=== PATIENT | male | born 1980 | race Caucasian/White ===

== ENCOUNTER 2023-08-14 01:22 | Day surgery (SDC) | payer BC, SELFPAY ==
[2023-08-01 10:08] VITALS: BMI 23.7
--- NOTE | 2023-08-10 14:30 | SUR.PREOP ---
Patient called regarding upcoming procedure. Message left on patient's voicemail regarding preop instructions, appointment times, and procedure prep.
[2023-08-14 11:34] VITALS: BP 124/84; PULSE 89; RESP 18; TEMP 36.4; O2SAT 100
[2023-08-14] MEDS: LACTATED RINGERS 1,000 ML 150 ML IV CONT (11:37)
--- NOTE | 2023-08-14 12:41 | WPDANESEPPF ---
Anes - Initial Pre Proc Eval Procedure: Operation Date: 08/14/23 13:00 Proposed Procedures p Colonoscopy - Rex Rodriguez MD Date/Time: 08/14/23 12:41 Surgeon: Rex Rodriguez MD Pre Op Diagnosis: FA HX colon polyps Patient Data Age: 42 Gender: M Height: 1.78 m Weight: 73.9 kg Last Vital Signs Temp 97.6 F 08/14/23 11:34 Pulse 89 08/14/23 11:34 Resp 18 08/14/23 11:34 BP 124/84 08/14/23 11:34 Pulse Ox 100 08/14/23 11:34 O2 Del Method Room Air 08/14/23 11:34 Allergies Allergy/AdvReac Type Severity Reaction Status Date / Time No Known Drug Allergies Allergy Unknown Unknown Verified 08/14/23 11:32 Home Medications Medication Instructions Recorded Confirmed Type emtricitabine 200 mg-tenofovir 1 tablet PO DAILY #30 tabs 11/17/22 08/01/23 Rx alafenamide fumarate 25 mg tablet (Descovy) alprazolam 0.5 mg tablet 0.5 mg PO BID PRN anxiety #30 tabs 07/03/23 08/01/23 Rx Patient hx anesthesia problems: none Family hx anesthesia problems: none Results Review: All pre-operative results and documents have been reviewed as part of the pre-operative evaluation. [facility] Family History Family History Mother Hypertension Father Cerebrovascular accident Social History Social History Smoking packs per day: 1 Smoking cigarettes per day: 20.0 Years smoked: 20 Smoking pack-years: 20.00 Smoking status: Current every day smoker Tobacco type: cigarettes Second hand tobacco smoke exposure: No Alcohol intake: current Drinks per week: 6 Substance use: never Substance use type: does not use Living arrangements: alone Occupation/Education: occupation Gender identity (if verbalized by the patient): Male Sexual Orientation (if Verbalized by the Patient): Straight or Heterosexual Anes - Eval Final PreProcedure Day of Procedure 08/14/23 12:41 Patient weight: normal Heart: regular rate and rhythm Lungs: clear to auscultation Airway: Mallampati scale class II Neurological: alert and oriented Last oral intake: >/= 8 hours ASA classification: II Emergent: no Anesthetic plan: proceed Anesthesia type and monitoring: general GIVS and standard monitoring Results Review: All pre-operative results and documents have been reviewed as part of the pre-operative evaluation. Informed Consent: The patient's anesthetic plan and its attendant risks and benefits were discussed with the patient/family/POA. Questions were solicited and answers provided to the satisfaction of the patient/family/POA.
--- NOTE | 2023-08-14 12:52 | PM.HPGS ---
History of Present Illness History of Present Illness Consent: Risks, benefits, and alternatives have been discussed and questions answered. Patient agrees to proceed with procedure. Chief complaint: FA HX colon polyps Narrative: Oscar Delgado is a 42 year old male here for first screening colonoscopy Review of Systems Constitutional: Constitutional: Denies headache(s) and Denies weakness Eyes: Eyes: Denies blurry vision ENT: Reports Normal hearing present, Denies headache(s) and Denies neck pain Cardiovascular: Cardiovascular: Denies chest pain and Denies dyspnea Respiratory: Respiratory: Denies dyspnea Gastrointestinal: Gastrointestinal: Reports no additional gastrointestinal complaints Genitourinary: Genitourinary: Denies dysuria Musculoskeletal: Musculoskeletal: Denies neck pain Integumentary/Breasts: Skin/Breast: Denies dry skin Neurologic: Reports Normal hearing present, Denies headache(s) and Denies weakness Psychiatric: Psychiatric: Denies anxiety Endocrine: Endocrine: Denies change in body appearance Hematologic/Lymphatic: Hematologic/Lymphatic: Denies easy bleeding Allergic/Immunologic: Allergic/Immunologic: Denies urticaria PMFSH Past Medical History Medical History (Updated 08/14/23 @ 12:53 by Rex Rodriguez MD) Colon cancer screening Family History Family History Mother Hypertension Father Cerebrovascular accident Social History Social History Smoking packs per day: 1 Smoking cigarettes per day: 20.0 Years smoked: 20 Smoking pack-years: 20.00 Smoking status: Current every day smoker Tobacco type: cigarettes Second hand tobacco smoke exposure: No Alcohol intake: current Drinks per week: 6 Substance use: never Substance use type: does not use Living arrangements: alone Occupation/Education: occupation Gender identity (if verbalized by the patient): Male Sexual Orientation (if Verbalized by the Patient): Straight or Heterosexual Meds Home Medications and Allergies Home Medications Medication Instructions Recorded Confirmed Type emtricitabine 200 mg-tenofovir 1 tablet PO DAILY #30 tabs 11/17/22 08/01/23 Rx alafenamide fumarate 25 mg tablet (Descovy) alprazolam 0.5 mg tablet 0.5 mg PO BID PRN anxiety #30 tabs 07/03/23 08/01/23 Rx Allergies Allergy/AdvReac Type Severity Reaction Status Date / Time No Known Drug Allergies Allergy Unknown Unknown Verified 08/14/23 11:32 Vital Signs Vital Signs - 24 hr 08/14/23 11:34 Temperature 97.6 F Pulse Rate 89 Respiratory Rate 18 Blood Pressure 124/84 Pulse Oximetry 100 Oxygen Delivery Room Air Exam Const: General: comfortable and no acute distress HENMT: Face/Nose/Sinus: Normal nares present Eyes: General: appearance normal, both eyes and all related structures Neck: Neck: no JVD Resp: Auscultation: clear to auscultation bilaterally Cardio: Rate: regular rate Rhythm: regular rhythm GI: Inspection: non-distended GI Palp: Yes Soft to palpation Skin: General skin exam: normal color Neuro: General: gait normal Speech: normal speech Extrem: General: normal to inspection Psych: Mental Status: mental status grossly normal Assessment and Plan Assessment and plan (1) Colon cancer screening: Code(s): Z12.11 - Encounter for screening for malignant neoplasm of colon Status: Acute Assessment and Plan: colonoscopy
[2023-08-14 13:13] VITALS: BP 106/70; PULSE 85; RESP 20; O2SAT 98
[2023-08-14 13:23] VITALS: BP 108/76; PULSE 74; RESP 20; O2SAT 99
[2023-08-14 13:33] VITALS: BP 124/81; PULSE 74; RESP 18; O2SAT 100
== END 2023-08-14 13:39 | disposition home or self-care (01) ==
PROVIDERS: PCP Family Medicine; Visit Provider Internal Medicine Gastroenterology
PROC: 0DJD8ZZ Inspection of Lower Intestinal Tract, Via Natural or Artificial Opening Endoscopic (ICD-10-PCS; CPT 45378; principal; 2023-08-14 13:00)
DX: Z12.11 Encounter for screening for malignant neoplasm of colon (principal); K64.8 Other hemorrhoids; F17.210 Nicotine dependence, cigarettes, uncomplicated; Z83.719 Family history of colon polyps, unspecified
CPT/HCPCS: 45378; J2704; J7120

== ENCOUNTER 2023-12-09 06:11 | Emergency (ER) | payer BC, SELFPAY ==
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
[2023-12-09 06:06] VITALS: BP 159/105; PULSE 117; RESP 22; TEMP 36.7; O2SAT 100
--- NOTE | 2023-12-09 06:32 | PC.NURSE ---
Patient refused tetanus shot at this time, states I don't want the shot until I get something for my pain. I refuse that shot. Patient informed that the ERP needs to evaluate him and place med orders in if needed. Patient states okay, I don't want anything done until I see them, cause I want something for pain. Patient slurring words when speaking, patients friend/family member at bedside states you're only making this process longer. Patient states I don't care, I am getting something for pain before anything else. Patient informed that ERP is aware and stated she will be in shortly but this RN cannot give pain medications until ordered by the provider.
[2023-12-09] MEDS: TETANUS,DIPHTHERIA,AC PERTUSSIS ADULT (0.5 ML) BOOSTRIX IM (06:47)
[2023-12-09] MEDS: ONDANSETRON INJ 4 MG/2 ML VIAL IV PUSH (06:48)
[2023-12-09] MEDS: MORPHINE SULFATE (*CRX) 4 MG/ML INJ IV PUSH (06:48)
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
[2023-12-09 07:54] VITALS: BP 144/88; PULSE 107; RESP 20; O2SAT 99
== END 2023-12-09 08:28 | disposition home or self-care (01) ==
PROVIDERS: Emergency Provider Emergency Medicine; PCP Family Medicine
DX: S51.811A Laceration without foreign body of right forearm, initial encounter (principal); Z23 Encounter for immunization; F17.210 Nicotine dependence, cigarettes, uncomplicated; X99.1XXA Assault by knife, initial encounter
CPT/HCPCS: 12004; 73090; 90471; 90715; 96374; 96375; 99284; J2270; J2405

== ENCOUNTER 2025-03-18 08:39 | Outpatient (CLI) | payer BC, SELFPAY ==
--- NOTE | ~2025-03-18 | XR_ITS ---
Right Shoulder Technique: AP and axillary views were obtained. Clinical History: Pain Findings: No fracture or dislocation is seen. Osseous alignment is anatomic. The glenohumeral and acr omioclavicular joint spaces are preserved. Soft tissues are unremarkable. Impression: Unremarkable right shoulder radiographs. Reviewed, dictated and finalized at [facility]. Impression: Unremarkable right shoulder radiographs.
== END 2025-03-18 08:40 | disposition home or self-care (01) ==
PROVIDERS: PCP Family Medicine; Visit Provider Physician Assistant
DX: M25.511 Pain in right shoulder (principal)
CPT/HCPCS: 73030